=== PATIENT | female | born 1970 | race Two or more races ===

== ENCOUNTER 2018-01-08 06:49 | Emergency (ER) | payer OTHER ==
[2018-01-08] MEDS ORDERED: PREDNISONE 20 MG TABLET PO ONE (07:24)
[2018-01-08] MEDS ORDERED: IPRATROPIUM/ALBUTEROL 0.5-2.5 MG/3 ML AMPUL NEB ONE (07:24)
[2018-01-08] MEDS ORDERED: ALBUTEROL SULFATE HFA (90 MCG/PUFF) 8 GM MDI (1 MDI/ER DISP) IH ONE (09:19)
--- NOTE | 2018-01-08 09:21 | ER Document Report ---
HPI - HPI Patient complains to provider of: Asthma attack Onset: Yesterday Onset/Duration: Persistent Pain Level: Denies Context: Patient has a history of allergy induced asthma attacks and states that she ran out of her medication. She complains of voice hoarseness and shortness of breath. Patient states that this is typical of flareups that she has had in the past. Patient without any chest pain. Associated Symptoms: Nonproductive cough Exacerbated by: Denies Relieved by: Denies Similar symptoms previously: Yes Recently seen / treated by doctor: No - ROS ROS below otherwise negative: Yes Systems Reviewed and Negative: Yes All other systems reviewed and negative - CONSTITUTIONAL Constitutional: DENIES: Fever - EENT EENT: DENIES: Sore Throat, Congestion Notes: Voice hoarseness - CARDIOVASCULAR Cardiovascular: DENIES: Chest pain - RESPIRATORY Respiratory: REPORTS: Coughing - GASTROINTESTINAL Gastrointestinal: DENIES: Patient vomiting - DERM Skin Color: Normal Skin Problems: None Past Medical History - General Information source: Patient - Social History Smoking Status: Never Smoker Chew tobacco use (# tins/day): No Frequency of alcohol use: Occasional Drug Abuse: None Occupation: Teacher Lives with: Family Family History: Reviewed & Not Pertinent Patient has suicidal ideation: No Patient has homicidal ideation: No Pulmonary Medical History: Reports: Hx Asthma Renal/ Medical History: Denies: Hx Peritoneal Dialysis Surgical Hx: Negative Vertical Provider Document - CONSTITUTIONAL Agree With Documented VS: Yes Exam Limitations: No Limitations General Appearance: WD/WN, No Apparent Distress - HEENT HEENT: Atraumatic, Normal ENT Exam, Normocephalic Notes: voice hoarseness - NECK Neck: Normal Inspection, Supple. negative: Lymphadenopathy-Left, Lymphadenopathy-Right - RESPIRATORY Respiratory: No Respiratory Distress, Chest Non-Tender, Wheezing - CARDIOVASCULAR Cardiovascular: Regular Rate, Regular Rhythm, No Murmur - BACK Back: Normal Inspection - MUSCULOSKELETAL/EXTREMETIES Musculoskeletal/Extremeties: MAEW - NEURO Level of Consciousness: Awake, Alert, Appropriate - DERM Integumentary: Warm, Dry Course - Re-evaluation Re-evalutation: 01/08/18 09:19 Patient with good air movement bilaterally, feels better after nebulizer treatment. Patient's voice hoarseness seems mildly improved after nebulizer treatment. - Vital Signs Vital signs: Temp Pulse Resp BP Pulse Ox 97.8 F 81 18 133/88 H 100 01/08/18 06:54 01/08/18 06:54 01/08/18 06:54 01/08/18 06:54 01/08/18 06:54 Discharge - Discharge Clinical Impression: Asthma exacerbation Qualifiers: Asthma severity: unspecified severity Asthma persistence: unspecified Qualified Code(s): J45.901 - Unspecified asthma with (acute) exacerbation Condition: Stable Disposition: HOME, SELF-CARE Instructions: Asthma ([facility]), Inhaled Bronchodilators ([facility]), Steroid Medication Additional Instructions: Return immediately for any new or worsening symptoms Followup with your primary care provider, call tomorrow to make a followup appointment Prescriptions: Albuterol Sulfate [Ventolin 0.083% Neb 2.5 mg/3 ml Ampul] 1 vial NEB Q4 PRN #25 vial PRN Reason: Nebulizer [Nebulizer Machine] 1 each MC ASDIR PRN #1 kit PRN Reason: Prednisone [Deltasone 10 mg Tablet] 10 mg PO ASDIR PRN #21 tablet PRN Reason: Forms: Return to Work
[2018-01-08 09:41] VITALS: BP 112/63
== END 2018-01-08 09:42 | disposition home or self-care (01) ==
LOC: ER 06:49
DX: J45.901 Unspecified asthma with (acute) exacerbation (principal); R49.0 Dysphonia; R06.02 Shortness of breath; Z79.899 Other long term (current) drug therapy
CPT/HCPCS: 94640; 99284; J7512; J3490; J7620